=== PATIENT | male | born 1985 | race Caucasian/White ===

== ENCOUNTER 2017-06-07 09:45 | Emergency (ER) | payer BC, OTHER ==
[~2017-06-07] VITALS: Ht 200.7 cm; Wt 85.7 kg
[2017-06-07 09:59] VITALS: BP 131/76; PULSE 68; RESP 16; TEMP 97.4; O2SAT 100
[2017-06-07] MEDS ORDERED: TIMO0.5S30 EACH EYE (10:07)
[2017-06-07] MEDS ORDERED: DORZ2SOL7 EACH EYE (10:18)
[2017-06-07] MEDS ORDERED: LATA0.002 EACH EYE (10:18)
--- NOTE | 2017-06-07 10:20 | PD ---
HPI Chief Complaint: Abdominal Pain Time Seen by Provider: 10:05 Travel History International Travel<30 days: No Contact w/Intl Traveler<30days: No Traveled to known affect area: No History of Present Illness HPI This patient complains of abdominal pain. Duration 7 days. Location is left lower quadrant. He said a few loose stools but no liquid runny diarrhea or constipation. No vomiting. He tried 3 days of Cipro thinking it might be diverticulitis or colitis. He has no abdominal surgeries or medical history beyond the right eye glaucoma. No alleviating factors. Severity is moderate PFSH Past Medical History Diminished Hearing: No Glaucoma: Yes Influenza Vaccination: No Past Surgical History Eye Surgery: Yes (several) Social History Alcohol Use: Yes Tobacco Use: No Allergies-Medications (Allergen,Severity, Reaction): Coded Allergies: No Known Allergies (Unverified , 06/07/17) Reported Meds & Prescriptions Reported Meds & Active Scripts Active Reported Latanoprost Opth Drops (Latanoprost) 0.005% Drops 1 Drop EACH EYE HS Refrigerate until opened. Cosopt Opth Drops (Dorzolamide-Timolol Opth Drops) 22.3-6.8 Mg/Ml Soln 1 Drop EACH EYE BID Review of Systems General / Constitutional: No: Fever Eyes: No: Visual changes HENT: No: Headaches Cardiovascular: No: Chest Pain or Discomfort Respiratory: No: Shortness of Breath Gastrointestinal: Positive: Abdominal Pain Genitourinary: No: Dysuria Musculoskeletal: No: Pain Skin: No Rash Neurologic: No: Weakness Psychiatric: No: Depression Endocrine: No: Polydipsia Hematologic/Lymphatic: No: Easy Bruising Physical Exam Narrative GENERAL: Well-nourished, well-developed patient in no apparent distress. SKIN: Focused skin assessment reveals no rash and nodules. Skin is Warm and dry. HEAD: Atraumatic. Normocephalic. EYES: Pupils equal and round. No scleral icterus. No injection or drainage. ENT: No nasal bleeding or discharge. Mucous membranes pink and moist. NECK: Trachea midline. No JVD. CARDIOVASCULAR: Regular rate and rhythm. No murmur appreciated. RESPIRATORY: No accessory muscle use. Clear to auscultation. Breath sounds equal bilaterally. GASTROINTESTINAL: Abdomen soft, mild left lower quadrant tenderness without rebound or guarding, nondistended. Hepatic and splenic margins not palpable. MUSCULOSKELETAL: No obvious deformities. No clubbing. No cyanosis. No edema. NEUROLOGICAL: Awake and alert. No obvious cranial nerve deficits. Motor grossly within normal limits. Normal speech. PSYCHIATRIC: Appropriate mood and affect; insight and judgment normal. Data Data Last Documented VS Vital Signs Date Time Temp Pulse Resp B/P Pulse Ox O2 Delivery O2 Flow Rate FiO2 06/07/17 09:59 97.4 68 16 131/[address] Abd/Pel W Iv Contrast(Rout) (06/07/17 ) Iv Access Insert/Monitor (06/07/17 10:13) Complete Blood Count With Diff (06/07/17 10:13) Basic Metabolic Panel (Bmp) (06/07/17 10:13) Urinalysis - C+S If Indicated (06/07/17 10:13) Iohexol 350 Inj (Omnipaque 350 Inj) (06/07/17 10:53) Labs Laboratory Tests Test 06/07/17 06/07/17 10:25 10:30 White Blood Count 5.2 TH/MM3 Red Blood Count 4.70 MIL/MM3 Hemoglobin 13.7 GM/DL Hematocrit 40.9 % Mean Corpuscular Volume 87.1 FL Mean Corpuscular Hemoglobin 29.1 PG Mean Corpuscular Hemoglobin 33.4 % Concent Red Cell Distribution Width 12.5 % Platelet Count 124 TH/MM3 Mean Platelet Volume 9.6 FL Neutrophils (%) (Auto) 49.5 % Lymphocytes (%) (Auto) 28.0 % Monocytes (%) (Auto) 9.6 % Eosinophils (%) (Auto) 12.1 % Basophils (%) (Auto) 0.8 % Neutrophils # (Auto) 2.7 TH/MM3 Lymphocytes # (Auto) 1.4 TH/MM3 Monocytes # (Auto) 0.5 TH/MM3 Eosinophils # (Auto) 0.6 TH/MM3 Basophils # (Auto) 0.0 TH/MM3 CBC Comment DIFF FINAL Differential Comment Sodium Level 141 MEQ/L Potassium Level 4.1 MEQ/L Chloride Level 108 MEQ/L Carbon Dioxide Level 28.7 MEQ/L Anion Gap 4 MEQ/L Blood Urea Nitrogen 15 MG/DL Creatinine 1.00 MG/DL Estimat Glomerular Filtration 88 ML/MIN Rate Random Glucose 94 MG/DL Calcium Level 8.9 MG/DL Urine Collection Type CLEAN CATCH Urine Color YELLOW Urine Turbidity CLEAR Urine pH 6.0 Urine Specific [place] 1.015 Urine Protein NEG mg/dL Urine Glucose (UA) NEG mg/dL Urine Ketones NEG mg/dL Urine Occult Blood NEG Urine Nitrite NEG Urine Bilirubin NEG Urine Leukocyte Esterase NEG Urine RBC 0-3 /hpf Urine Squamous Epithelial 0-5 /hpf Cells Microscopic Urinalysis Comment CULT NOT INDICATED Urine Collection Time 10:30 [facility] Medical Decision Making Medical Screen Exam Complete: Yes Emergency Medical Condition: Yes Medical Record Reviewed: Yes Differential Diagnosis Diverticulitis, colitis, ileus Narrative Course I have reviewed the patient's electronic medical record. 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 There is a couple incidental findings including L5 finding and tiny hepatic cyst. The main issue is a scattering of benign-appearing nodes of unclear significance. He will follow-up with his physician and they will consider GI follow-up. Stable for outpatient follow-up. He has benign soft abdomen Diagnosis Primary Impression: Left lower quadrant abdominal pain of unknown etiology Additional Instructions: The patient was advised to follow up with their physician and return if they worsen. Med/Other Pt SpecificInfo: Other Disposition: 01 DISCHARGE HOME Condition: Stable Matthias Gutierrez MD Jun 07, 2017 10:19
[2017-06-07 10:38] LABS: AUTOMATED NEUTROPHIL # 2.7 TH/MM3 (1.8-7.7); BASOPHIL % 0.8 % (0.0-2.0); EOSINOPHIL # 0.6 TH/MM3 (0-0.4); EOSINOPHIL % 12.1 % (0.0-4.0); HEMATOCRIT 40.9 % (39.0-51.0); HEMO FLAGS DIFF FINAL; LYMPHOCYTE # 1.4 TH/MM3 (1.0-4.8); MEAN CELL VOLUME 87.1 FL (80.0-100.0); MEAN CORPUSCULAR HEMOGLOBIN 29.1 PG (27.0-34.0); MEAN CORPUSCULAR HGB CONC 33.4 % (32.0-36.0); MONO % 9.6 % (0.0-8.0); NEUT % 49.5 % (16.0-70.0); PLATELET COUNT 124 TH/MM3 (150-450); RED CELL DISTRIBUTION WIDTH 12.5 % (11.6-17.2); WHITE BLOOD COUNT 5.2 TH/MM3 (4.0-11.0)
[2017-06-07 10:46] LABS: BLOOD, URINE NEG (NEG); GLUCOSE,URINE NEG (NEG); KETONE, URINE NEG (NEG); NITRITE,URINE NEG (NEG)
[2017-06-07 10:47] LABS: POTASSIUM 4.1 MEQ/L (3.5-5.1)
[2017-06-07 10:49] LABS: BICARBONATE 28.7 MEQ/L (21.0-32.0)
[2017-06-07] MEDS ORDERED: IOHEXOL 350 MG/ML 10 ML VIAL (for RAD DIAG) IV ONE (10:53)
[2017-06-07 10:56] LABS: COMMENT (UR) CULT NOT INDICATED; CULTURE IF INDICATED CULT NOT INDICATED; METHOD OF COLLECTION CLEAN CATCH; RBC, URINE 0-3 /hpf (0-3); SQUAMOUS EPITHELIAL CELL URINE 0-5 /hpf (0-5); URINE COLOR YELLOW (YELLW/STRAW)
--- NOTE | 2017-06-07 11:20 | RADRPT ---
EXAM DATE/TIME: 06/07/2017 10:30 [facility] COMPARISON: No previous studies available for comparison. INDICATIONS : Left lower quadrant pain for 1 week. IV CONTRAST: 90 cc Omnipaque 350 (iohexol) IV ORAL CONTRAST: No oral contrast ingested. RADIATION DOSE: 8.80 CTDIvol (mGy) MEDICAL HISTORY : None SURGICAL HISTORY : None. ENCOUNTER: Initial ACUITY: 1 week PAIN SCALE: 4/10 LOCATION: Left lower quadrant TECHNIQUE: Volumetric scanning of the abdomen and pelvis was performed. Using automated exposure control and ad justment of the mA and/or kV according to patient size, radiation dose was kept as low as reasonably achievable to obtain optimal diagnostic quality images. DICOM format image data is available electro nically for review and comparison. FINDINGS: CT Abdomen: The spleen, pancreas, kidneys, adrenals are unremarkable. There is no evidence for any ap preciable free fluid, or bowel obstruction. There are a few slightly prominent lymph nodes in the me sentery in the midline and extending to the right lower quadrant the largest measures [address] likely benign could be reactive. There are also benign appearing lymph nodes in bilateral groin. I ncidental note is made of a tiny 4-5 mm low attenuating lesion in the right hepatic lobe. CT pelvis: There is no evidence for mass, abscess formation within the pelvis. The prostate gland is inhomogeneous and measures 2.6 x 4.2 cm in AP and transverse diameters and nonspecific. 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 CONCLUSION: 1. Nonspecific, they're most likely benign lymph nodes in the mesentery and bilateral groin. 2. Chronic spondylolysis L5 bilaterally. 3. Incidental note is made of a tiny 4-5 mm low attenuating lesion in the right hepatic lobe. Jhonny Shin MD on June 07, 2017 at 11:02 Board Certified Radiologist. This report was verified electronically.
[2017-06-07 11:43] VITALS: BP 115/51
== END 2017-06-07 11:44 | disposition home or self-care (01) ==
LOC: PHED 09:45
DX: R10.32 Left lower quadrant pain (principal)
CPT/HCPCS: 74177; 80048; 81001; 85025; 99285; Q9967

== ENCOUNTER 2017-06-30 17:12 | Emergency (ER) | payer BC ==
[~2017-06-30 17:12] MED LIST: DORZ2SOL7 EACH EYE; LATA0.002 EACH EYE
[2017-06-30] MEDS ORDERED: LIDOCAINE 1%/EPINEPHrine 1:100,000 SOLN 20 ML VIAL INFIL ONE (17:15)
[2017-06-30 17:25] VITALS: BP 140/73; PULSE 83; RESP 20; TEMP 98.4; O2SAT 97
[2017-06-30] MEDS ORDERED: CEPH-460 PO (18:00)
--- NOTE | 2017-06-30 18:02 | PD ---
HPI Chief Complaint: Laceration/Skin Injury Time Seen by Provider: 17:14 Travel History International Travel<30 days: No Contact w/Intl Traveler<30days: No Traveled to known affect area: No History of Present Illness HPI 31-year-old man presents emergent heart complaining of a puncture wound to the left hand. He was changing a battery on a boat when it started to slip and he put his hand on trying to catch it. He got a laceration to the webspace between his thumb and second finger. He is right handed. He has no real medical history. Tetanus shot is up-to-date. He states a battery was new and there is no see water exposure. History Past Medical History Medical History: Denies Significant Hx Tetanus Vaccination: < 5 Years Influenza Vaccination: No Social History Alcohol Use: Yes Tobacco Use: No Allergies-Medications (Allergen,Severity, Reaction): Coded Allergies: No Known Allergies (Unverified , 06/07/17) Reported Meds & Prescriptions Reported Meds & Active Scripts Active Reported Latanoprost Opth Drops (Latanoprost) 0.005% Drops 1 Drop EACH EYE HS Refrigerate until opened. Cosopt Opth Drops (Dorzolamide-Timolol Opth Drops) 22.3-6.8 Mg/Ml Soln 1 Drop EACH EYE BID Review of Systems Except as stated in HPI: all other systems reviewed are Neg Physical Exam Narrative GENERAL: Well-appearing 31-year-old, no acute distress. SKIN: Warm and dry. CARDIOVASCULAR: Warm and well perfused. RESPIRATORY: Normal rate and effort. MUSCULOSKELETAL: Focused examination of the left hand reveals a jagged laceration the left first and second digit extending from the first digit to the second digit. About a centimeter in length. Tendon functions full and intact in the thumb and flexion and extension abduction and adduction and opposition. Data Data Last Documented VS Vital Signs Date Time Temp Pulse Resp B/P Pulse Ox O2 Delivery O2 Flow Rate FiO2 06/30/17 17:25 98.4 83 20 140/73 97 Orders Lidocai-Epi 1%-1:100,000 Inj (Xylocaine- (06/30/17 17:15) MDM Medical Decision Making Medical Screen Exam Complete: Yes Emergency Medical Condition: Yes Differential Diagnosis Laceration, tendon injury, other Narrative Course Well 31-year-old male with a laceration to the webspace between his first and second digit. Was repaired primarily. Procedures Procedure Narrative LACERATION LOCATION: Left hand LENGTH: 1 cm NUMBER OF STITCHES/KEANU: 5 REPAIR: The area of the laceration was prepped with Betadine and sterilely draped. The laceration was infiltrated with 1% lidocaine with epinephrine. The wound was copiously irrigated and explored without evidence of foreign body , tendon injury or neurovascular injury. The wound was closed using 5-0 Prolene. This was a single layer repair. A sterile dressing was applied. The patient was advised to keep the dressing clean and dry. Patient tolerated the procedure well. Diagnosis Primary Impression: Hand laceration Patient Instructions: General Instructions Additional Instructions: Take Keflex as prescribed. Keep wound clean and dry. Do not wet for 24 hours. After 24 hours and clean the wound gently with soap and water. Gently clean wound twice daily with soap and water. Do not soak wound. No swimming, hot tubs, or allowing wound to get too wet. Apply antibiotic ointment to wound twice daily. Return to the emergency department for any worsening pain, swelling, redness, significant bleeding, or any other new or worsening symptoms. Sutures can be removed in 7 days. Med/Other Pt SpecificInfo: Prescription(s) given Scripts Cephalexin (Keflex)500 Mg [id number] Mg PO Q8H 5 Days Ref 0 Prov:Alberto Almanza MD 06/30/17 Disposition: 01 DISCHARGE HOME Condition: Serious Alberto Almanza MD Jun 30, 2017 18:01
== END 2017-06-30 18:31 | disposition home or self-care (01) ==
LOC: PHEFT 17:12
DX: S61.412A Laceration without foreign body of left hand, initial encounter (principal); X58.XXXA Exposure to other specified factors, initial encounter; Y92.814 Boat as the place of occurrence of the external cause
CPT/HCPCS: 12001